=== PATIENT | female | born 1985 | race Caucasian/White ===

== ENCOUNTER 2017-11-06 11:19 | Emergency (ER) | payer SELFPAY ==
[~2017-11-06] VITALS: Ht 154.9 cm; Wt 56.7 kg
[2017-11-06 11:37] VITALS: Ht 154.9 cm; Wt 56.7 kg
[2017-11-06 12:28] VITALS: BP 118/68
== END 2017-11-06 12:28 | disposition home or self-care (01) ==
LOC: ED 11:19
DX: L23.9 Allergic contact dermatitis, unspecified cause (principal)
CPT/HCPCS: J7512; Q0163